=== PATIENT | female | born 1985 | race Caucasian/White ===

== ENCOUNTER → 2017-09-11 | Day surgery (SDC) | payer MEDICARE, MEDICAID ==
[2017-09-11] VITALS (13 sets, daily range): BP systolic 83–107; BP diastolic 44–71
[~2017-09-11] VITALS: Wt 52.2 kg
[~2017-09-11] MED LIST: CLINDAMYCIN HC300 MG PO; DOK COLACE100 MG PO; LAMOTRIGINE100 MG PO; LEVETIRACETAM1000 M1 PO; MULTIVITAMINS1 EAC6 PO; PENICILLIN VK500 MG PO; RECLIPSEN 28 D1 EACH PO; SERTRALINE HYDR50 MG PO; TYLENOL WITH C1 EACH PO; ZONISAMIDE100 MG PO; ZONISAMIDE50 M1 PO
--- NOTE | ~2017-09-11 | O ---
[place], [place] OPERATIVE NOTE NAME: RADHA OCAMPO UNIT #: [id number] ROOM: DOCTOR: KATARZYNA CRAWFORD DMD BIRTHDATE: [birth year] DOS: 09/11/2017 PREOPERATIVE DIAGNOSES: Caries and severe seizure disorder. POSTOPERATIVE DIAGNOSES: Caries and severe seizure disorder. ANESTHESIA: General anesthesia with endotracheal intubation. FLUIDS: Minimal. ESTIMATED BLOOD LOSS: Minimal. COMPLICATIONS: None. CONDITION: To PACU, stable. DESCRIPTION OF PROCEDURE: The patient was brought to the OR and placed in supine position. IV and EKG lines were placed. Endotracheal intubation and general anesthesia was administered. The patient was prepped and draped for oral procedures. Risks and benefits were explained to the patient and parent prior to surgery. Clinical exam and x-rays taken determined caries #1, 6, 14, 15, 17, 20, 22, 23, 24, 25, 26, 27, 29, 30, 31 and 32. PROCEDURES PERFORMED: #1 extraction, #6 mesiofacial composite, #14 OL composite, #15 OL composite, #17 extraction, #20 mesiobuccal distal composite, #22 mesiofacial distal composite, #23 mesiofacial distal composite, #24 MFD composite, #25 MFD composite, #26 MFD composite, #27 MFD composite, #29 mesiobuccal distal amalgam, #30 mesiobuccal distal amalgam, #31 mesiobuccal distal amalgam, #32 extraction. Sutured with 4-0 Vicryl. Prophylaxis and fluoride. Lavaged x 2. Throat pack removed. The patient left the OR in good condition and went to the PACU. KATARZYNA CRAWFORD DMD CM:OPRECORD:OPERATIVE NOTE [id number] KATARZYNA CRAWFORD DMD 09/12/17 1523 interface
== END | disposition home or self-care (01) ==
LOC: SDC 09-05 11:00
DX: K02.9 Dental caries, unspecified (principal); G40.909 Epilepsy, unspecified, not intractable, without status epilepticus; K21.9 Gastro-esophageal reflux disease without esophagitis; F32.2 Major depressive disorder, single episode, severe without psychotic features; Z79.899 Other long term (current) drug therapy; Z88.8 Allergy status to other drugs, medicaments and biological substances; Z98.890 Other specified postprocedural states